=== PATIENT | female | born 1945 | race Caucasian/White ===

== ENCOUNTER 2018-06-19 10:32 | Day surgery (SDC) | payer MEDICARE, MEDICAID | END 2018-06-19 10:33 | disposition home or self-care (01) | LOC: H.ENDO 10:32 | PROVIDERS: ATTEND Internal Medicine Gastroenterology | DX: Z02.89 Encounter for other administrative examinations (principal) ==

== ENCOUNTER 2018-06-19 11:43 | Day surgery (SDC) | payer MEDICARE, MEDICAID ==
[2018-06-19] MEDS ORDERED: Lactated Ringer's 500 ML IV ONE (11:47)
[2018-06-19] MEDS ORDERED: Propofol 10 mg/ml Inj (20 ML) ONE (12:59)
[2018-06-19 13:26] VITALS: TEMP 97
[2018-06-19 13:38] VITALS: BP 124/53; PULSE 51; RESP 19; O2SAT 97
== END 2018-06-19 13:38 | disposition home or self-care (01) ==
LOC: H.ENDO 11:43
PROVIDERS: ATTEND Internal Medicine Gastroenterology
DX: R13.10 Dysphagia, unspecified (principal); F32.9 Major depressive disorder, single episode, unspecified; I10 Essential (primary) hypertension; E11.9 Type 2 diabetes mellitus without complications; E78.5 Hyperlipidemia, unspecified
CPT/HCPCS: 43239; 88305; J2001; J2704; J7120